=== PATIENT | male | born 1955 | race Caucasian/White ===

== ENCOUNTER → 2023-09-14 07:05 | Outpatient (REF) | payer MEDICARE, OTHER, SELFPAY ==
[2023-09-14 08:09] LABS: Urine Albumin Negative (Neg - Trace); Urine Bilirubin Negative (Negative); Urine Character Clear (Clear); Urine Color Yellow; Urine Glucose 3+ (Negative); Urine Ketone Negative (Negative); Urine Leukocyte Negative (Negative); Urine Nitrite Negative (Negative); Urine Occult Blood 1+ (Negative); Urine Specific Gravity 1.015 (<1.030); Urine Urobilinogen Negative (Neg - 1+)
[2023-09-14 08:30] LABS: Urine Squamous Cell 0-2 /LPF (Few); Urine White Cell 0-2 /HPF (0-5)
[2023-09-14 08:50] LABS: Glycohemoglobin (HgbA1c) 8.4 % (4.0-5.6)
[2023-09-14 09:12] LABS: Albumin 4.6 g/dl (3.5-5.0); Blood Urea Nitrogen 22 mg/dl (9-20); Calcium 9.9 mg/dl (8.4-10.2); Carbon Dioxide 24 mmol/L (22-30); Chloride 106 mmol/L (98-107); Glucose 172 mg/dl (70-99); Phosphorus 4.3 mg/dl (2.5-4.5); Potassium 4.5 mmol/L (3.5-5.1); Sodium 137 mmol/L (135-145); Uric Acid 3.5 mg/dl (3.5-8.5); eGFR > 60.00
[2023-09-14 10:04] LABS: Protein/creatinine Ratio 0.1; Urine Protein 8 mg/dl
== END ==
LOC: REG 07:05
PROVIDERS: ATTENDING PHYSICIAN Specialist; FAMILY PHYSICIAN Internal Medicine
DX: I10 Essential (primary) hypertension (principal); E11.69 Type 2 diabetes mellitus with other specified complication; I25.10 Atherosclerotic heart disease of native coronary artery without angina pectoris
CPT/HCPCS: 36415; 80048; 80069; 81003; 81015; 82570; 83036; 84156; 84550

== ENCOUNTER 2023-09-28 11:28 | Emergency (ER) | payer MEDICARE, OTHER, SELFPAY ==
[2023-09-28 11:51] VITALS: BP 121/83
[2023-09-28 12:16] LABS: % Basophils 0.6 % (0-2); % Eosinophils 2.9 % (0-6); % Immature Granulocytes 0.2 % (0-0.5); % Lymphocytes 15.2 % (20.5-51.1); % Monocytes 17.1 % (1.7-9.3); Absolute Basophils 0.1 10^3/uL (0-0.2); Absolute Eosinophils 0.2 10^3/uL (0-0.7); Absolute Lymphocytes 1.3 10^3/uL (1.2-3.4); Absolute Monocytes 1.4 10^3/uL (0.1-0.6); Absolute Neutrophils 5.4 10^3/uL (1.4-6.5); Hematocrit 40.8 % (39.0-52.0); Mean Corp Hgb Conc. 34.3 g/dL (33.0-37.0); Mean Corpuscular Volume 81.6 fL (80.0-94.0); Mean Platelet Volume 9.5 fL (7.4-10.4); Nucleated Red Blood Cells % 0 % (-); Platelet Count 314 10^3/uL (130-400); Red Cell Dist. Width 13.9 % (11.5-14.5); White Blood Cell Count 8.4 10^3/uL (4.8-10.8)
[2023-09-28 12:35] LABS: COVID-19 Antigen Negative (Negative)
[2023-09-28 12:36] LABS: ALT (SGPT) 28 U/L (0-50); AST (SGOT) 27 U/L (17-59); Albumin 4.5 g/dl (3.5-5.0); Alkaline Phosphatase 47 U/L (38-126); Blood Urea Nitrogen 21 mg/dl (9-20); Calcium 9.4 mg/dl (8.4-10.2); Carbon Dioxide 25 mmol/L (22-30); Chloride 100 mmol/L (98-107); Glucose 167 mg/dl (70-99); Sodium 135 mmol/L (135-145); Total Protein 7.4 g/dl (6.3-8.2); eGFR > 60.00
[2023-09-28 13:11] LABS: Lactic Acid 1.4 mmol/L (0.7-2.0)
[2023-09-28 15:18] VITALS: BP 156/93
[2023-09-28 15:21] VITALS: BMI 29.6
[2023-09-28 16:00] VITALS: BP 149/79
--- NOTE | 2023-09-28 16:26 | ED.GENMED ---
History of Present Illness
General
Chief Complaint: Breathing Problem
Source: patient
Exam Limitations: none
Time Seen by Provider: 09/28/23 15:11
Nursing documentation reviewed up to this point in time: agreed with
Travel History
Have you had any contact with someone who has COVID-19?: No
Do you have any symptoms of coronavirus? Fever > 100 degrees, chills, cough, shortness of breath, sore throat, loss of taste or smell, muscle aches, or headache?: Yes
Symptoms:: fever, cough
History of Present Illness
History of Present Illness:
Patient is a 5-year-old male who presents to the ER complaining of nonproductive cough for the past 4 days. Patient has reported subjective fevers he went to urgent care on Thursday and has been taking a Z-[place] since without any improvement. He does
not have a history of COPD or lung issues. He denies any chest pain. He denies any shortness of breath. No other complaints.
Patient is a non-smoker.
Past History
Past History
ED Past Medical History: CAD, HTN, Hypercholesterolemia, NIDDM, [place] and Other (Kidney stones)
ED Past Surgical History: Cardiac (NSTEMI Stent) and Orthopedic
Social History
Tobacco: Non-smoker
Alcohol: None
Drug: None
Personal:
Employment: Employed
Family History
Family History: Negative Early CAD
Review of Systems
Review of Systems
Allergies reviewed?: Yes
All Other Systems: ROS reviewed and negative except as documented in HPI and ROS
Constitutional: Reports no symptoms; Denies fever, fatigue or chills
EENT: Reports no symptoms
Respiratory: Reports cough; Denies hemoptysis or trouble breathing
Cardiac: Reports no symptoms
ABD/GI: Reports no symptoms
: Reports no symptoms
Musculoskeletal: Reports no symptoms
Skin: Reports no symptoms
Neurological: Reports no symptoms
Hematologic/Lymphatic: Reports no symptoms
Psychiatric: Reports no symptoms
Phy Exam
General Physical Exam
General Presentation: no apparent distress
General age: appears stated age
General Skin: warm and dry
General Habitus: normal
General Mental: alert
General Hydration: appears well hydrated
Cardiovascular Exam
Cardiovascular Exam: regular rate/rhythm, no murmur and normal peripheral pulses
Pulmonary Exam
Pulmonary Exam: no respiratory distress and other (+ cough slight rhonchi )
Neurological Exam
Neurological Exam: alert and oriented x3
Musculoskeletal Exam
Musculoskeletal Exam: full ROM
Skin Exam
Skin Exam: normal color and warm/dry
Psychiatric Exam
Psychiatric Exam: normal mood/affect
Scores
Heart Failure Risk
Heart Failure Risk Score: Not Applicable
Course
Orders/Labs/Results
Orders:
Orders
09/28/23 11:54
Electrocardiogram (*1) Urgent
Reason for Study: Other
Other Reason for Exam: Possible Sepsis
09/28/23 11:55
EKG- Treatment ONCE
CR Chest - 2 Views Urgent
Comment:
Reason For Exam: suspected infection
09/28/23 12:03
COVID-19 Antigen Urgent
Source: Nasal Swab
Complete Blood Count/With Diff Urgent
Comprehensive Metabolic Panel Urgent
Lactic Acid Q4H
Comment: ON ICE, CANCEL 2ND ORDER IF FIRST LACTIC ACID LEVEL <2
Blood Culture Q30M
ROSHAN Source: Blood/Venous
Specimen Description:
Comment: FROM 2 SEPARATE SITES
INF RAPID [Influenza A+B Rapid Molecular] Urgent
ROSHAN Source: Nasal Swab
Specimen Description:
09/28/23 12:30
Blood Culture Q30M
ROSHAN Source: Blood/Venous
Specimen Description:
Comment: FROM 2 SEPARATE SITES
09/28/23 16:26
Albuterol Nebs [Ventolin Nebules] 2.5 mg INH R NOW STA
Abnormal Lab Results
09/28/23
12:03
Absolute Monos (auto) 1.4 H 10^3/uL
(0.1-0.6)
Lymphocytes % 15.2 L %
(20.5-51.1)
Monocytes % 17.1 H %
(1.7-9.3)
BUN 21 H mg/dl
(9-20)
Glucose 167 H mg/dl
(70-99)
09/28/23 12:03
09/28/23 12:03
Vital Signs
Initial and Last Documented VS:
Initial Vital Signs
Temp Pulse Resp BP Pulse Ox
99.9 F 93 16 121/83 99
09/28/23 11:51 09/28/23 11:51 09/28/23 11:51 09/28/23 11:51 09/28/23 11:51
Last Documented Vital Signs
Temp Pulse Resp BP Pulse Ox
99.9 F 93 16 121/83 98
09/28/23 11:51 09/28/23 11:51 09/28/23 11:51 09/28/23 11:51 09/28/23 15:21
MDM/Problems Addressed
Differential Diagnosis Includes:
Not limited to COVID flu pneumonia bronchitis.
MDM/Problems Addressed:
Symptoms are likely consistent with viral syndrome bronchitis. Patient with mild rhonchi/ very slight wheezing however in no acute distress negative COVID flu chest x-ray negative for pneumonia. Patient is a diabetic we will hold off on steroids
we will give albuterol inhaler to go home. Patient would like to use Mucinex I reviewed with patient nothing with Sudafed as he does have a history of high blood pressure. Will also give a prescription for Tessalon Perles.
[id number] received 1 neb here feeling improved will DC home
Chronic conditions affecting care:
Diabetes will hold off on oral steroids
*Radiology
Radiology exam reviewed: radiology read reviewed
*Pulse Oximetry
Patient hypoxic: no
*Critical Care Note
Total Time (30-74mins, 75-104mins- exclusive of procedures): Not Applicable
ED Attending Note
-
Portions of this chart may have been created with voice recognition software.� Occasional wrong word or��sound alike� substitutions may have occurred due to the inherent limitations of voice recognition software.
Discharge Plan
Departure
Patient Disposition: Home (Routine Discharge)
Date of Disposition: 09/28/23
Time of Disposition: 17:42
Patient with high blood pressure during this ER visit?: No
Condition: Fair
Covid-19: Not Applicable
Discharge Problem:
Bronchitis, Acute bronchitis
Instructions: Acute Bronchitis, Adult (DC)
Prescriptions:
New
albuterol sulfate [ProAir HFA] 90 mcg/actuation HFA aerosol inhaler
2 inh inhalation Q6H PRN (Reason: shortness of breath or wheezing) Qty: 8.5 0RF
benzonatate 100 mg capsule
200 mg PO TID PRN (Reason: Cough) Qty: 10 0RF
No Action
nitroglycerin 0.4 MG tablet, sublingual
0.4 mg sublingual [id number] PRN (Reason: chest pain) Qty: 30 3RF
metformin 500 MG tablet
1,000 mg PO BID@0800,1700
glimepiride 1 MG tablet
1 mg PO BID
rosuvastatin [Crestor] 40 MG tablet
40 mg PO QPM
aspirin [Aspir-Low] 81 MG tablet,delayed release (DR/EC)
81 mg PO DAILY
Losartan
1 tab PO DAILY
Patient Comments:
pt unsure of doseage
oxycodone-acetaminophen 5 MG/325 MG tablet
1 tab PO Q4HPRN PRN (Reason: Pain) Qty: 15 0RF
indomethacin 50 MG capsule
50 mg PO TID Qty: 18 0RF
Rx Instructions:
Take with food
ondansetron 4 MG tablet,disintegrating
4 mg PO TIDPRN PRN (Reason: nausea) Qty: 20 0RF
oxycodone-acetaminophen 5 MG/325 MG tablet
1 - 2 tab PO Q4HPRN PRN (Reason: severe pain) Qty: 15 0RF
tamsulosin 0.4 MG capsule
0.4 mg PO DAILY 5 Days Qty: 5 0RF
diclofenac potassium 50 MG tablet
50 mg PO BID Qty: 20 0RF
Referrals:
Nato Nuñez MD [Family Provider] -
Activity Restrictions/Additional Instructions:
As discussed you may use [id number] Mucinex however do not use anything with a decongestant.
You may use inhaler 2 puffs every 6 hours as needed this medication was sent to your pharmacy along with cough medication. Follow-up close with your family doctor in the next several days and return if any worsening of symptoms.
Interventions
Interventions:
*Risk Screen - Suicide Last Done: 09/28/23 15:21
*General Assessment Last Done: 09/28/23 15:21
*Neglect/Abuse Screening Last Done: 09/28/23 15:21
ED- Fall Risk Assessment Last Done: 09/28/23 15:21
*ED COVID-19 Vaccine History Last Done: 09/28/23 15:21
ED- Cardiac Assessment Last Done: 09/28/23 15:21
ED- Pulmonary Assessment Last Done: 09/28/23 15:21
Discharge Date and Time
Print Language: VINCENTIAN
[2023-09-28] MEDS: VENTOLIN NEBULES 2.5 MG INH (16:42)
[2023-09-28 17:00] VITALS: BP 157/88
== END 2023-09-28 18:04 | disposition home or self-care (01) ==
LOC: EMR 11:28
PROVIDERS: Emergency Medicine; EMERGENCY PHYSICIAN Student in an Organized Health Care Education/Training Program; FAMILY PHYSICIAN Internal Medicine
DX: J20.9 Acute bronchitis, unspecified (principal); E11.9 Type 2 diabetes mellitus without complications; Z11.52 Encounter for screening for COVID-19
CPT/HCPCS: 99285; 94640; 71046; 80053; 83605; 85025; 87040; 87502; 87811; 93005

== ENCOUNTER 2023-10-22 09:50 | Emergency (ER) | payer MEDICARE, OTHER, SELFPAY ==
[2023-10-22 09:57] VITALS: BP 142/78
--- NOTE | 2023-10-22 10:52 | ED.MUSCINJ ---
HPI-Injury
General
Chief Complaint: Musculo-Skeletal Complaint
Source: patient
Exam Limitations: none
Time Seen by Provider: 10/22/23 10:27
Travel History
Have you had any contact with someone who has COVID-19?: No
Do you have any symptoms of coronavirus? Fever > 100 degrees, chills, cough, shortness of breath, sore throat, loss of taste or smell, muscle aches, or headache?: No
History of Present Illness-Injury
Initial Injury comments:
68-year-old male presents complaining of left wrist pain starting 2 days ago after a fall. He fell on his side and stop his fall with his left hand. Since then has had increasing pain to the wrist. Pain is made worse with motion. He is not
anticoagulated other than a baby aspirin. No other complaints at this time.
Past History
Past History
ED Past Medical History: CAD, HTN, Hypercholesterolemia, NIDDM, [place] and Other (Kidney stones)
ED Past Surgical History: Cardiac (NSTEMI Stent) and Orthopedic
Social History
Tobacco: Non-smoker
Alcohol: None
Drug: None
Personal:
Employment: Employed
Family History
Family History: Negative Early CAD
Phy Exam
Physical Exam
Physical Exam:
General: Well-appearing male no acute respiratory distress
Musculoskeletal exam: Left wrist swollen over the radiocarpal joint and tender over the dorsal wrist. The pain is made worse with motion. No deformities. The elbow is nontender.
Skin is intact no laceration
Injury Course
Orders/Labs/Results
Orders:
Orders
10/22/23 09:59
Wrist, Left 3 Views CR [CR Wrist - Left Min 3 Views] Urgent
Comment:
Reason For Exam: injury
MDM/Problems Addressed
Differential Diagnosis Includes:
I personally visualized x-rays of the left wrist which are negative for obvious acute fracture. He has some avulsions that appear chronic in nature as well as some degenerative changes in the wrist. Pain worsened with time over 2 days after the
fall which would make more sense with a sprain. Patient was placed in a universal will be advised follow-up with orthopedics for further evaluation. Stable for discharge
*Critical Care Note
Total Time (30-74mins, 75-104mins- exclusive of procedures): Not Applicable
ED Attending Note
-
Portions of this chart may have been created with voice recognition software.� Occasional wrong word or��sound alike� substitutions may have occurred due to the inherent limitations of voice recognition software.
Discharge Plan
Departure
Patient Disposition: Home (Routine Discharge)
Date of Disposition: 10/22/23
Time of Disposition: 10:54
Patient with high blood pressure during this ER visit?: No
Discharge Problem:
Left wrist sprain
Instructions: Muscle and Bone Pain (DC)
Prescriptions:
New
meloxicam 7.5 mg tablet
7.5 mg PO BID PRN (Reason: pain) Qty: 14 0RF
No Action
nitroglycerin 0.4 MG tablet, sublingual
0.4 mg sublingual [id number] PRN (Reason: chest pain) Qty: 30 3RF
metformin 500 MG tablet
1,000 mg PO BID@0800,1700
glimepiride 1 MG tablet
1 mg PO BID
rosuvastatin [Crestor] 40 MG tablet
40 mg PO QPM
aspirin [Aspir-Low] 81 MG tablet,delayed release (DR/EC)
81 mg PO DAILY
Losartan
1 tab PO DAILY
Patient Comments:
pt unsure of doseage
oxycodone-acetaminophen 5 MG/325 MG tablet
1 tab PO Q4HPRN PRN (Reason: Pain) Qty: 15 0RF
indomethacin 50 MG capsule
50 mg PO TID Qty: 18 0RF
Rx Instructions:
Take with food
ondansetron 4 MG tablet,disintegrating
4 mg PO TIDPRN PRN (Reason: nausea) Qty: 20 0RF
oxycodone-acetaminophen 5 MG/325 MG tablet
1 - 2 tab PO Q4HPRN PRN (Reason: severe pain) Qty: 15 0RF
tamsulosin 0.4 MG capsule
0.4 mg PO DAILY 5 Days Qty: 5 0RF
diclofenac potassium 50 MG tablet
50 mg PO BID Qty: 20 0RF
albuterol sulfate [ProAir HFA] 90 mcg/actuation HFA aerosol inhaler
2 inh inhalation Q6H PRN (Reason: shortness of breath or wheezing) Qty: 8.5 0RF
benzonatate 100 mg capsule
200 mg PO TID PRN (Reason: Cough) Qty: 10 0RF
Referrals:
Keith Estrada MD [Active] -
Nato Nuñez MD [Family Provider] -
Activity Restrictions/Additional Instructions:
Rest. Use splint for comfort. Use prescribed medicine as needed for discomfort. Follow-up with orthopedic for further evaluation
Interventions
Interventions:
*Risk Screen - Suicide Last Done: 10/22/23 09:57
*General Assessment Last Done: 10/22/23 09:57
*Neglect/Abuse Screening Last Done: 10/22/23 09:57
Discharge Date and Time
Print Language: MALAGASY
== END 2023-10-22 11:40 | disposition home or self-care (01) ==
LOC: EMR 09:50
PROVIDERS: EMERGENCY PHYSICIAN Emergency Medicine; FAMILY PHYSICIAN Internal Medicine
DX: S63.502A Unspecified sprain of left wrist, initial encounter (principal); X58.XXXA Exposure to other specified factors, initial encounter; I10 Essential (primary) hypertension; E78.00 Pure hypercholesterolemia, unspecified; E11.9 Type 2 diabetes mellitus without complications; I25.2 Old myocardial infarction
CPT/HCPCS: 99283; 73110

== ENCOUNTER → 2023-12-14 06:45 | Outpatient (REF) | payer MEDICARE, OTHER, SELFPAY | LOC: REG 06:45 | PROVIDERS: ATTENDING PHYSICIAN Internal Medicine | DX: E11.69 Type 2 diabetes mellitus with other specified complication (principal) | CPT/HCPCS: 36415; 83036 ==

== ENCOUNTER → 2024-04-05 07:11 | Outpatient (REF) | payer MEDICARE, OTHER, SELFPAY ==
[2024-04-05 07:54] LABS: % Basophils 0.8 % (0-2); % Eosinophils 5.1 % (0-6); % Immature Granulocytes 0.3 % (0-0.5); % Lymphocytes 27.1 % (20.5-51.1); % Monocytes 9.9 % (1.7-9.3); % Neutrophils 56.8 % (42.2-75.2); Absolute Basophils 0.1 10^3/uL (0-0.2); Absolute Eosinophils 0.3 10^3/uL (0-0.7); Absolute Lymphocytes 1.7 10^3/uL (1.2-3.4); Absolute Monocytes 0.6 10^3/uL (0.1-0.6); Absolute Neutrophils 3.5 10^3/uL (1.4-6.5); Hematocrit 41.9 % (39.0-52.0); Hemoglobin 14.4 g/dL (13.0-18.0); Mean Corp Hgb Conc. 34.4 g/dL (33.0-37.0); Mean Corpuscular Volume 84.5 fL (80.0-94.0); Mean Platelet Volume 9.7 fL (7.4-10.4); Nucleated Red Blood Cells % 0 % (-); Platelet Count 272 10^3/uL (130-400); Red Blood Cell Count 4.96 10^6/uL (4.70-6.10); Red Cell Dist. Width 13.9 % (11.5-14.5); White Blood Cell Count 6.1 10^3/uL (4.8-10.8)
[2024-04-05 07:56] LABS: Urine Albumin Negative (Neg - Trace); Urine Bilirubin Negative (Negative); Urine Character Clear (Clear); Urine Color Yellow; Urine Glucose 3+ (Negative); Urine Ketone Negative (Negative); Urine Leukocyte Negative (Negative); Urine Nitrite Negative (Negative); Urine Occult Blood Negative (Negative); Urine Urobilinogen Negative (Neg - 1+)
[2024-04-05 08:38] LABS: ALT (SGPT) 52 U/L (0-50); AST (SGOT) 37 U/L (17-59); Albumin 4.7 g/dl (3.5-5.0); Alkaline Phosphatase 36 U/L (38-126); Blood Urea Nitrogen 21 mg/dl (9-20); Calcium 10.1 mg/dl (8.4-10.2); Carbon Dioxide 26 mmol/L (22-30); Chloride 104 mmol/L (98-107); Glucose 214 mg/dl (70-99); HDL Cholesterol 39 mg/dl; LDL Cholesterol, Calculated 83 mg/dl; Potassium 4.5 mmol/L (3.5-5.1); Sodium 143 mmol/L (135-145); Total Bilirubin 0.4 mg/dl (0.2-1.3); Total Cholesterol 170 mg/dl (50-199); Total Protein 7.1 g/dl (6.3-8.2); Triglyceride 241 mg/dl (10-149); Very Low Density Lipoprotein 48 mg/dl (0-30); eGFR > 60.00
[2024-04-05 08:55] LABS: Glycohemoglobin (HgbA1c) 8.4 % (4.0-5.6)
[2024-04-05 10:12] LABS: Microalbumin, Random Urine 2.4 mg/dl (0.6-1.7); Microalbumin/creatinine Ratio 32.3 mg/g
== END ==
LOC: REG 07:11
PROVIDERS: ATTENDING PHYSICIAN Internal Medicine Cardiovascular Disease; FAMILY PHYSICIAN Internal Medicine
DX: I25.10 Atherosclerotic heart disease of native coronary artery without angina pectoris (principal); E11.69 Type 2 diabetes mellitus with other specified complication; E78.00 Pure hypercholesterolemia, unspecified; I10 Essential (primary) hypertension
CPT/HCPCS: 36415; 80053; 80061; 81003; 82043; 82570; 83036; 85025

== ENCOUNTER → 2024-10-04 06:51 | Outpatient (REF) | payer MEDICARE, OTHER, SELFPAY ==
[2024-10-04 07:36] LABS: Urine Albumin Negative (Neg - Trace); Urine Bilirubin Negative (Negative); Urine Character Clear (Clear); Urine Color Yellow; Urine Glucose 4+ (Negative); Urine Ketone Negative (Negative); Urine Leukocyte Negative (Negative); Urine Nitrite Negative (Negative); Urine Occult Blood Negative (Negative); Urine Urobilinogen Negative (Neg - 1+)
[2024-10-04 07:56] LABS: % Basophils 0.8 % (0-2); % Eosinophils 5.3 % (0-6); % Immature Granulocytes 0.3 % (0-0.5); % Lymphocytes 26.4 % (20.5-51.1); % Monocytes 10.4 % (1.7-9.3); % Neutrophils 56.8 % (42.2-75.2); Absolute Basophils 0.1 10^3/uL (0-0.2); Absolute Eosinophils 0.3 10^3/uL (0-0.7); Absolute Lymphocytes 1.7 10^3/uL (1.2-3.4); Absolute Monocytes 0.7 10^3/uL (0.1-0.6); Absolute Neutrophils 3.6 10^3/uL (1.4-6.5); Hematocrit 40.6 % (39.0-52.0); Hemoglobin 13.5 g/dL (13.0-18.0); Mean Corp Hgb Conc. 33.3 g/dL (33.0-37.0); Mean Corpuscular Hgb 28.1 pg (27.0-31.0); Mean Corpuscular Volume 84.4 fL (80.0-94.0); Mean Platelet Volume 9.7 fL (7.4-10.4); Nucleated Red Blood Cells % 0 % (-); Platelet Count 301 10^3/uL (130-400); Red Blood Cell Count 4.81 10^6/uL (4.70-6.10); White Blood Cell Count 6.3 10^3/uL (4.8-10.8)
[2024-10-04 08:10] LABS: ALT (SGPT) 40 U/L (0-50); AST (SGOT) 27 U/L (17-59); Albumin 4.8 g/dl (3.5-5.0); Alkaline Phosphatase 36 U/L (38-126); Blood Urea Nitrogen 28 mg/dl (9-20); Calcium 9.4 mg/dl (8.4-10.2); Carbon Dioxide 23 mmol/L (22-30); Chloride 110 mmol/L (98-107); Glucose 233 mg/dl (70-99); HDL Cholesterol 39 mg/dl; LDL Cholesterol, Calculated 94 mg/dl; Potassium 4.4 mmol/L (3.5-5.1); Sodium 142 mmol/L (135-145); Total Bilirubin 0.6 mg/dl (0.2-1.3); Total Cholesterol 163 mg/dl (50-199); Total Protein 7.2 g/dl (6.3-8.2); Triglyceride 152 mg/dl (10-149); Very Low Density Lipoprotein 30 mg/dl (0-30); eGFR > 60.00
[2024-10-04 08:49] LABS: Glycohemoglobin (HgbA1c) 9.2 % (4.0-5.6)
[2024-10-04 09:13] LABS: Microalbumin, Random Urine 2.3 mg/dl (0.6-1.7)
== END ==
LOC: REG 06:51
PROVIDERS: ATTENDING PHYSICIAN Internal Medicine
DX: E11.69 Type 2 diabetes mellitus with other specified complication (principal); E78.00 Pure hypercholesterolemia, unspecified; I10 Essential (primary) hypertension; I25.10 Atherosclerotic heart disease of native coronary artery without angina pectoris
CPT/HCPCS: 36415; 80053; 80061; 81003; 82043; 82570; 83036; 85025

== ENCOUNTER → 2024-11-20 12:54 | Outpatient (REF) | payer MEDICARE, OTHER, SELFPAY | LOC: PAVMRI 12:54 | PROVIDERS: ATTENDING PHYSICIAN Orthopaedic Surgery; FAMILY PHYSICIAN Internal Medicine | DX: M25.561 Pain in right knee (principal) | CPT/HCPCS: 73721 ==

== ENCOUNTER → 2025-01-03 14:54 | Outpatient (REF) | payer MEDICARE, OTHER, SELFPAY | LOC: HWRAD 14:54 | PROVIDERS: ATTENDING PHYSICIAN Specialist; FAMILY PHYSICIAN Internal Medicine | DX: N20.0 Calculus of kidney (principal) | CPT/HCPCS: 76775 ==